=== PATIENT | female | born 1970 | race Caucasian/White ===

== ENCOUNTER → 2020-02-04 | Outpatient (CLI) | payer BC ==
--- NOTE | 2020-02-04 07:57 | XR ---
EXAMINATION TYPE: XR chest 2V DATE OF EXAM: 02/04/2020 COMPARISON: None INDICATION: Chest pain TECHNIQUE: Frontal and lateral views of the chest are obtained. FINDINGS: The heart size is normal. The pulmonary vasculature is normal. The lungs are clear. IMPRESSION: 1. No acute pulmonary process.
== END | disposition home or self-care (01) ==
LOC: RADXRMAIN 07:33
PROVIDERS: ATTEND Family Medicine
DX: R07.9 Chest pain, unspecified (principal); I16.0 Hypertensive urgency
CPT/HCPCS: 71046

== ENCOUNTER → 2022-12-14 | Outpatient (CLI) | payer BC ==
--- NOTE | 2022-12-14 14:15 | XR ---
EXAMINATION TYPE: XR abdomen 2V DATE OF EXAM: 12/14/2022 COMPARISON: None INDICATION: Chest congestion, fever TECHNIQUE: Single view abdomen right is FINDINGS: There is a normal bowel gas pattern. No free air is evident. No differential air-fluid levels are pablito dent. Psoas margins are normal. No organomegaly is present. IMPRESSION: 1. Unremarkable Abdomen
--- NOTE | 2022-12-14 14:25 | XR ---
EXAMINATION TYPE: XR chest 2V DATE OF EXAM: 12/14/2022 1:15 PM COMPARISON: Chest radiographs from 02/04/2020 TECHNIQUE: XR chest 2V Frontal and lateral views of the chest. CLINICAL INDICATION:Female, 52 years old with history of R09.89 chest congestion, R50.81 fever; FINDINGS: Lungs/Pleura: There is no evidence of pleural effusion, focal consolidation, or pneumothorax. Pulmonary vascularity: Unremarkable. Heart/mediastinum: Cardiomediastinal silhouette is unremarkable. Musculoskeletal: No acute osseous pathology. IMPRESSION: No acute cardiopulmonary disease/process.
== END | disposition home or self-care (01) ==
LOC: RADXRMAIN 12:50
PROVIDERS: ATTEND Nurse Practitioner Family
DX: K40.90 Unilateral inguinal hernia, without obstruction or gangrene, not specified as recurrent (principal); R93.5 Abnormal findings on diagnostic imaging of other abdominal regions, including retroperitoneum; R09.89 Other specified symptoms and signs involving the circulatory and respiratory systems; R50.81 Fever presenting with conditions classified elsewhere; Z04.9 Encounter for examination and observation for unspecified reason
CPT/HCPCS: 71046; 74019